=== PATIENT | female | born 1995 | race African-American/Black ===

== ENCOUNTER 2016-07-24 15:49 | Emergency (ER) | payer SELFPAY ==
[~2016-07-24] VITALS: Ht 162.6 cm; Wt 130.0 kg
[~2016-07-24 15:49] MED LIST: ALBU6.7H INH; BACT800T5 PO; MEDR10 PO
[2016-07-24 15:50] VITALS: BP 128/72; PULSE 98; RESP 16; TEMP 97.9; O2SAT 95
== END 2016-07-24 23:25 | disposition left against medical advice (07) ==
LOC: NED 23:25
DX: N93.9 Abnormal uterine and vaginal bleeding, unspecified (principal)
CPT/HCPCS: 99281

== ENCOUNTER 2017-07-06 18:10 | Emergency (ER) | payer SELFPAY ==
[~2017-07-06] VITALS: Ht 162.6 cm; Wt 118.0 kg
[2017-07-06 18:30] VITALS: BP 128/80; PULSE 104; RESP 18; TEMP 98.4; O2SAT 100
[2017-07-06 18:52] LABS: AUTOMATED NEUTROPHIL # 7.2 TH/MM3 (1.8-7.7); BASOPHIL # 0.1 TH/MM3 (0-0.2); BASOPHIL % 0.9 % (0.0-2.0); EOSINOPHIL # 0.1 TH/MM3 (0-0.4); EOSINOPHIL % 0.5 % (0.0-4.0); HEMATOCRIT 32.7 % (35.0-46.0); HEMOGLOBIN 10.7 GM/DL (11.6-15.3); LYMPH % 24.6 % (9.0-44.0); LYMPHOCYTE # 2.8 TH/MM3 (1.0-4.8); MEAN CELL VOLUME 62.6 FL (80.0-100.0); MEAN CORPUSCULAR HEMOGLOBIN 20.5 PG (27.0-34.0); MEAN CORPUSCULAR HGB CONC 32.7 % (32.0-36.0); MEAN PLATELET VOLUME 8.4 FL (7.0-11.0); MONO % 10.6 % (0.0-8.0); MONOCYTE # 1.2 TH/MM3 (0-0.9); NEUT % 63.4 % (16.0-70.0); PLATELET COUNT 397 TH/MM3 (150-450); RED BLOOD COUNT 5.23 MIL/MM3 (4.00-5.30); RED CELL DISTRIBUTION WIDTH 19.1 % (11.6-17.2); WHITE BLOOD COUNT 11.4 TH/MM3 (4.0-11.0)
[2017-07-06 19:01] LABS: BILIRUBIN, URINE NEG (NEG); BLOOD, URINE NEG (NEG); GLUCOSE,URINE NEG (NEG); KETONE, URINE NEG (NEG); NITRITE,URINE NEG (NEG); SQUAMOUS EPITHELIAL CELL URINE 11 /hpf (0-5); URINE COLOR YELLOW (YELLW/STRAW); URINE LEUKOCYTE ESTERASE SMALL (NEG)
[2017-07-06] MEDS ORDERED: SODIUM CHLOR 0.9% 1000 ML INJ 1,000 ML IV SCH (21:15)
[2017-07-06] MEDS ORDERED: ONDANSETRON HCL 4 MG/2 ML VIAL IVP ONE (21:15)
--- NOTE | 2017-07-06 21:26 | PD ---
HPI Chief Complaint: Related Problem Time Seen by Provider: 21:09 Travel History International Travel<30 days: No Contact w/Intl Traveler<30days: No History of Present Illness HPI 21-year-old female presents for evaluation of abdominal pain, nausea, vomiting, dizziness. Symptoms started this morning. She reports cramping pain in her lower quadrant with multiple episodes of emesis today. She denies any vaginal bleeding or discharge, flank pain, dysuria, fevers, chills. She denies any sick contacts. Denies any dietary changes. She is concerned about the possibility of - according to triage note she took a total of 3 tests at home and 2 were negative and one was positive. Reportedly her last menstrual period was April 08, 2017. She has no other complaints at this time. [facility] Past Medical History Anemia: Yes Diabetes: Yes ("BORDERLINE") Diminished Hearing: No Reproductive: Yes (IRREGULAR VAGINAL BLEEDING) ?: LMP: 04/08/17 : 0 Social History Alcohol Use: Yes (OCCASSIONAL) Tobacco Use: No Substance Use: No Allergies-Medications (Allergen,Severity, Reaction): Coded Allergies: No Known Allergies (Unverified , 07/24/16) Reported Meds & Prescriptions Reported Meds & Active Scripts Active Review of Systems Except as stated in HPI: all other systems reviewed are Neg Physical Exam Narrative GENERAL: Well-developed well-nourished female no acute distress SKIN: Warm and dry. HEAD: Atraumatic. Normocephalic. EYES: Pupils equal and round. No scleral icterus. No injection or drainage. ENT: No nasal bleeding or discharge. Mucous membranes pink and moist. NECK: Trachea midline. No JVD. CARDIOVASCULAR: Regular rate and rhythm. No murmur appreciated. RESPIRATORY: No accessory muscle use. Clear to auscultation. Breath sounds equal bilaterally. GASTROINTESTINAL: Abdomen soft, focal right lower quadrant tenderness without guarding. Negative Rovsing's. No CVA tenderness. MUSCULOSKELETAL: No obvious deformities. NEUROLOGICAL: Awake and alert. No obvious cranial nerve deficits. Motor grossly within normal limits. Normal speech. PSYCHIATRIC: Appropriate mood and affect; insight and judgment normal. Data Data Last Documented VS Vital Signs Date Time Temp Pulse Resp B/P (MAP) Pulse Ox O2 Delivery O2 Flow Rate FiO2 07/06/17 18:30 98.4 104 18 128/80 (96) 100 Orders Orders Complete Blood Count With Diff (07/06/17 18:34) Beta Hcg (Quant/Titer) (07/06/17 18:34) Ed Urine Pregnancytest Poc (07/06/17 18:34) Urinalysis - C+S If Indicated (07/06/17 18:34) Comprehensive Metabolic Panel (07/06/17 21:15) Lipase (07/06/17 21:15) Ct Abd/Pel W Iv Contrast(Rout) (07/06/17 21:15) Iv Access Insert/Monitor (07/06/17 21:15) Ondansetron Inj (Zofran Inj) (07/06/17 21:15) Sodium Chlor 0.9% 1000 Ml Inj (Ns 1000 M (07/06/17 21:15) Labs Laboratory Tests Test 07/06/17 18:42 White Blood Count 11.4 TH/MM3 Red Blood Count 5.23 MIL/MM3 Hemoglobin 10.7 GM/DL Hematocrit 32.7 % Mean Corpuscular Volume 62.6 FL Mean Corpuscular Hemoglobin 20.5 PG Mean Corpuscular Hemoglobin Concent 32.7 % Red Cell Distribution Width 19.1 % Platelet Count 397 TH/MM3 Mean Platelet Volume 8.4 FL Neutrophils (%) (Auto) 63.4 % Lymphocytes (%) (Auto) 24.6 % Monocytes (%) (Auto) 10.6 % Eosinophils (%) (Auto) 0.5 % Basophils (%) (Auto) 0.9 % Neutrophils # (Auto) 7.2 TH/MM3 Lymphocytes # (Auto) 2.8 TH/MM3 Monocytes # (Auto) 1.2 TH/MM3 Eosinophils # (Auto) 0.1 TH/MM3 Basophils # (Auto) 0.1 TH/MM3 CBC Comment DIFF FINAL Differential Comment Urine Color YELLOW Urine Turbidity HAZY Urine pH 6.0 Urine Specific [place] 1.027 Urine Protein TRACE mg/dL Urine Glucose (UA) NEG mg/dL Urine Ketones NEG mg/dL Urine Occult Blood NEG Urine Nitrite NEG Urine Bilirubin NEG Urine Urobilinogen LESS THAN 2.0 MG/DL Urine Leukocyte Esterase SMALL Urine WBC 2 /hpf Urine Squamous Epithelial Cells 11 /hpf Microscopic Urinalysis Comment CULT NOT INDICATED Human Chorionic Gonadotropin, Quant LESS THAN 1 MIU/ML MDM Medical Decision Making Medical Screen Exam Complete: Yes Emergency Medical Condition: Yes Medical Record Reviewed: Yes Differential Diagnosis Appendicitis, ovarian torsion, tubo-ovarian abscess, colitis, gastroenteritis, intrauterine , ectopic Narrative Course 21-year-old female with 1 day history of nausea, vomiting, dizziness, abdominal pain. On examination she has focal right lower quadrant abdominal tenderness. Lab work was obtained in triage prior to my examination. Her WBC count is 11.4. Hemoglobin is 10.7. Quantitative beta-hCG is less than 1, negative. I have added on a CMP and lipase. Given her examination findings as well as mild leukocytosis, my main concern would be appendicitis. I explained to the patient that I would be ordering a CT of the abdomen and pelvis however she refuses the examination and wants to leave. She reports that her main concern was that she was and now that she knows that she is not she no longer wishes to stay for further examination. The patient will be leaving AMA. I tried to explain the risks of leaving AMA including ruptured appendicitis, sepsis, however she was very interruptive during this counseling and no longer wishes to discuss anything in regards to her care. She understands that she can return at any time if she changes her mind. Diagnosis Primary Impression: Left against medical advice Disposition: 07 AGAINST MEDICAL ADVICE Condition: Stable Sharan Koch Jul 06, 2017 21:26
[2017-07-06 21:40] LABS: ALBUMIN 3.7 GM/DL (3.4-5.0); ALT (GPT) 30 U/L (10-53); AST (GOT) 18 U/L (15-37); BICARBONATE 25.9 MEQ/L (21.0-32.0); BLOOD UREA NITROGEN 16 MG/DL (7-18); CALCIUM 8.7 MG/DL (8.5-10.1); CHLORIDE 105 MEQ/L (98-107); CREATININE 0.91 MG/DL (0.50-1.00); GLOMERULAR FILTRATION RATE 94 ML/MIN (>89); GLUCOSE,RANDOM 86 MG/DL (74-106); SODIUM (NA) 139 MEQ/L (136-145)
[2017-07-06 21:42] LABS: ALKALINE PHOSPHATASE 105 U/L (45-117); TOTAL BILIRUBIN ADULT 0.2 MG/DL (0.2-1.0); TOTAL PROTEIN 9.2 GM/DL (6.4-8.2)
== END 2017-07-06 21:33 | disposition left against medical advice (07) ==
LOC: NEPD 18:10
DX: R11.2 Nausea with vomiting, unspecified (principal); R10.30 Lower abdominal pain, unspecified; R42 Dizziness and giddiness
CPT/HCPCS: 80053; 81001; 83690; 84702; 84703; 85025; 99283

== ENCOUNTER 2017-07-13 15:48 | Emergency (ER) | payer SELFPAY ==
[~2017-07-13] VITALS: Ht 165.1 cm; Wt 120.0 kg
[2017-07-13 16:10] VITALS: BP 114/88; PULSE 108; RESP 18; TEMP 98; O2SAT 98
[2017-07-13] MEDS ORDERED: SODIUM CHLORIDE 0.9% FLUSH 10 ML FLUSH IV FLUSH PRN (16:30)
== END 2017-07-13 19:42 | disposition left against medical advice (07) ==
LOC: NED 15:48
DX: R10.9 Unspecified abdominal pain (principal)
CPT/HCPCS: 99281